=== PATIENT | male | born 1945 | race Caucasian/White ===

== ENCOUNTER → 2016-09-28 | Outpatient (CLI) | payer OTHER ==
[~2016-09-28] MED LIST: ALBUTEROL0.09 MG/A2 IH; BENTYL10 MG PO; DOXYCYCLINE100 M2 PO; MEDROL DOSEPAK4 MG PO; OMNICEF300 MG PO; PERCOCET 325 MG1 TA2 PO; PROAIR HFA8.5 GM INH; ROBITUSSIN AC 110 ML PO; ROBITUSSIN-AC480 ML PO; XARELTO15 M1 PO; ZOFRAN ODT4 MG SL
[2016-09-28 11:21] LABS: HEMATOCRIT 41.6 % (42.0-52.0); HEMOGLOBIN 13.6 g/dl (14.0-18.0); MEAN CELL VOLUME 91.2 fl (80.0-94.0); MEAN CORPUSCULAR HGB 29.8 pg (27.0-31.0); MEAN CORPUSCULAR HGB CONC 32.7 g/dl (33.0-37.0); MEAN PLATELET VOLUME 9.8 fl (9.6-12.3); RED BLOOD COUNT 4.56 10*6/uL (4.50-5.90); RED CELL DISTRI WIDTH 13.6 % (0-14.5); WHITE BLOOD COUNT 8.9 10*3/uL (4.8-10.8)
[2016-09-28 11:38] LABS: ALBUMIN 3.2 gm/dl (3.1-4.5); ALKALINE PHOSPHATASE 91 U/L (45-117); BILIRUBIN, TOTAL 0.4 mg/dl (0.2-1.0); BUN 12 mg/dl (7-24); CARBON DIOXIDE 31 mmol/L (21-32); CHLORIDE 109 mmol/L (98-107); CHOLESTEROL 188 mg/dL (<200); EST GLOM FILT AFRICAN AMERICAN > 60 ml/min; GLUCOSE 95 mg/dL (65-99); HDL CHOLESTEROL 47 mg/dl (40-60); LDL CHOLESTEROL 110 mg/dL (9-159); POTASSIUM 4.1 mmol/L (3.5-5.1); SGOT/AST 18 IU/L (3-35); SGPT/ALT 32 U/L (12-78); SODIUM 144 mmol/L (136-145); TOTAL PROTEIN 6.8 gm/dL (6.4-8.2); TRIGLYCERIDES 156 mg/dl (<150); VLDL CHOLESTEROL 31 mg/dL (6-40)
== END | disposition home or self-care (01) ==
LOC: LAB 10:42
PROVIDERS: Family Medicine
DX: Z12.5 Encounter for screening for malignant neoplasm of prostate (principal); L03.90 Cellulitis, unspecified; E55.9 Vitamin D deficiency, unspecified; E78.00 Pure hypercholesterolemia, unspecified; R53.83 Other fatigue

== ENCOUNTER 2016-11-27 03:44 | Emergency (ER) | payer OTHER ==
[~2016-11-27] VITALS: Ht 177.8 cm; Wt 95.3 kg
[2016-11-27] MEDS ORDERED: VITAMIN D5000 I3 PO (04:07)
[2016-11-27] MEDS ORDERED: FISH OIL500 M2 PO (04:08)
[2016-11-27 04:31] LABS: HEMATOCRIT 45.4 % (42.0-52.0); HEMOGLOBIN 15.2 g/dl (14.0-18.0); MEAN CELL VOLUME 88.5 fl (80.0-94.0); MEAN CORPUSCULAR HGB 29.6 pg (27.0-31.0); MEAN CORPUSCULAR HGB CONC 33.5 g/dl (33.0-37.0); MEAN PLATELET VOLUME 9.6 fl (9.6-12.3); PLATELET COUNT AUTOMATED 284 10*3/uL (130-400); RED BLOOD COUNT 5.13 10*6/uL (4.50-5.90); RED CELL DISTRI WIDTH 13.5 % (0-14.5); WHITE BLOOD COUNT 18.7 10*3/uL (4.8-10.8)
[2016-11-27 04:47] LABS: ALBUMIN 3.5 gm/dl (3.1-4.5); ALKALINE PHOSPHATASE 84 U/L (45-117); BILIRUBIN, TOTAL 0.6 mg/dl (0.2-1.0); BUN 14 mg/dl (7-24); C-REACTIVE PROTEIN 1.11 MG/DL (0-0.3); CARBON DIOXIDE 27 mmol/L (21-32); CHLORIDE 105 mmol/L (98-107); EST GLOM FILT AFRICAN AMERICAN > 60 ml/min; GLUCOSE 160 mg/dL (65-99); POTASSIUM 4.1 mmol/L (3.5-5.1); SGOT/AST 16 IU/L (3-35); SGPT/ALT 32 U/L (12-78); SODIUM 141 mmol/L (136-145); TOTAL PROTEIN 7.2 gm/dL (6.4-8.2)
[2016-11-27 04:50] LABS: TROPONIN I < 0.015 ng/ml (<0.045)
[2016-11-27 04:58] LABS: BASOPHIL # 0.2 10*3/uL (0-0.1); BASOPHILS 1 % (0-1); LYMPHOCYTE # 1.7 10*3/uL (1.3-4.4); METAMYELOCYTES 1 % (0-0); MONOCYTE # 1.3 10*3/uL (0.1-1.0); NEUTROPHIL # 15.3 10*3/uL (2.3-7.9); NEUTROPHILS 82 % (47-73); PLATELET SUFFICIENCY NORMAL (NORMAL); POLYCHROMASIA SLIGHT; TOTAL CELLS COUNTED 100 #CELLS
[2016-11-27 06:28] LABS: LA>2 REFLEX 2 HR DRAW NOW
[2016-11-27 08:41] VITALS: BP 132/68
[2016-11-27 08:51] LABS: BILIRUBIN NEGATIVE (NEGATIVE); BLOOD NEGATIVE (NEGATIVE); CLARITY SL CLOUDY (CLEAR); COLOR YELLOW (YELLOW); GLUCOSE NEGATIVE (NEGATIVE); KETONE NEGATIVE (NEGATIVE); LEUKO ESTERASE NEGATIVE (NEGATIVE); NITRITE NEGATIVE (NEGATIVE); PH 5.5 (5.0-9.0); PROTEIN NEGATIVE (NEGATIVE); SPECIFIC GRAVITY <= 1.005 (1.005-1.030); UROBILINOGEN 0.2 E.U./dl (0.2-1.0)
[2016-11-27 08:57] LABS: URINE REFLEX COMMENT NO (NO)
== END 2016-11-27 10:11 | disposition short-term general hospital (02) ==
LOC: ED 03:44
PROVIDERS: Emergency Medicine Emergency Medical Services
DX: K56.60 Unspecified intestinal obstruction (principal); F17.210 Nicotine dependence, cigarettes, uncomplicated; Z79.899 Other long term (current) drug therapy; Z86.718 Personal history of other venous thrombosis and embolism

== ENCOUNTER → 2017-07-12 | Outpatient (CLI) | payer OTHER ==
[~2017-07-12] MED LIST changes: +FISH OIL500 M2 PO; +VITAMIN D5000 I3 PO
[2017-07-12 10:46] LABS: HEMATOCRIT 43.6 % (42.0-52.0); HEMOGLOBIN 14.5 g/dl (14.0-18.0); MEAN CELL VOLUME 90.8 fl (80.0-94.0); MEAN CORPUSCULAR HGB 30.2 pg (27.0-31.0); MEAN CORPUSCULAR HGB CONC 33.3 g/dl (33.0-37.0); MEAN PLATELET VOLUME 9.7 fl (9.6-12.3); RED BLOOD COUNT 4.8 10*6/uL (4.50-5.90); RED CELL DISTRI WIDTH 13.3 % (0-14.5); WHITE BLOOD COUNT 10.3 10*3/uL (4.8-10.8)
[2017-07-12 11:21] LABS: ALBUMIN 3.3 gm/dl (3.1-4.5); BUN 13 mg/dl (7-24); CHLORIDE 108 mmol/L (98-107); POTASSIUM 4.1 mmol/L (3.5-5.1); SGOT/AST 19 IU/L (3-35); SODIUM 143 mmol/L (136-145); TOTAL PROTEIN 7.3 gm/dL (6.4-8.2)
[2017-07-12 11:22] LABS: ALKALINE PHOSPHATASE 95 U/L (45-117); CHOLESTEROL 192 mg/dL (<200); CREATININE 1.06 mg/dL (0.70-1.30); HDL CHOLESTEROL 40 mg/dl (40-60); LDL CHOLESTEROL 104 mg/dL (9-159); SGPT/ALT 32 U/L (12-78); TRIGLYCERIDES 242 mg/dl (<150); VLDL CHOLESTEROL 48 mg/dL (6-40)
== END | disposition home or self-care (01) ==
LOC: LAB 10:18
PROVIDERS: Family Medicine
DX: E78.00 Pure hypercholesterolemia, unspecified (principal); E55.9 Vitamin D deficiency, unspecified; R05 Cough

== ENCOUNTER 2017-11-26 21:44 | Inpatient (IN) | payer OTHER ==
[~2017-11-26] VITALS: Ht 177.8 cm; Wt 94.6 kg
--- NOTE | ~2017-11-26 | CON ---
[place], [place] REPORT OF CONSULTATION NAME: [facility]CG[facility]RE [id number] UNIT #: [id number] ROOM: 421 DOCTOR: TROY ELIZABETH MDVANDERPOOLNOÉ BIRTHDATE: [birth year] DOS: 11/28/2017 GASTROENDOSCOPIC CONSULTATION REPORT HISTORY OF PRESENT ILLNESS: This is a 72-year-old patient who presented with chief complaint of distention of the abdomen, nausea through Emergency Room and was assessed with a panel of blood glucose, found to have white blood cell 14, H and H of 15 and 45. Differential within normal limit. Comprehensive metabolic panel: BUN and creatinine within normal limit. Glucose 110. Electrolytes balance, liver function tests and lipase within normal limits. CT scan of the abdomen and pelvis was performed and 2 separate moderate grade small bowel partial mechanical obstruction is outlined, the first occurs at the level of the mid jejunum where there is focal circumferential wall thickening of the mid jejunum and fecal like contents within the dilated small bowel proximal to this transition zone, small bowel becomes dilated and fluid filled beyond the proximal obstruction with second moderate partial mechanical obstruction at the level of mid ileum. There is a gain circumferential of the small bowel wall thickening at transition. The distal ileum remains circumferentially mildly thickened and this may be related to chronic inflammatory problem. Patchy scarring and atelectasis of left greater than the right lung base with chronic calcific pleural plaques noticed lung nodules in both lung bases are unchanged from 2013, moderate size hiatal hernia, diverticulosis all has been outlined. Lactic acid 1.3. Chest x-ray otherwise advance of the NG tube was suggested that has been done. CBC differential noticed abdominal x-ray followups, finding consistent with a small-bowel obstruction on and finally on . Report of bowel gas pattern cannot be evaluated and NG present and this signifies that decompression has been done adequately. Clinically, patient has bowel sounds in all quadrants and has had small bowel movement this morning after the x-ray has been taken on him. The latest acute abdominal series, no concern about obstruction has been raised. PAST MEDICAL HISTORY: Recurrent bowel obstruction, which has been treated with NG tube and decompressions in the past. Otherwise, he is not on any medication and he does not have a chronic illness that is under treatment. PAST SURGICAL HISTORY: Nil. ALLERGIES: No known medication. SOCIAL HISTORY: Smoker of 10 cigarettes per day. Nonalcohol consumer. MEDICATIONS: At home are limited to multivitamins self-management. FAMILY HISTORY: Noncontributory. REVIEW OF SYSTEMS: HEENT: Denies double vision, blurred vision. RESPIRATORY: Denies acute chest pain or shortness of breath. CARDIOVASCULAR: No typical chest pain or hypertension. DIGESTIVE SYSTEM: Abdominal pain, nausea and recurrent small-bowel obstruction [place], [place] REPORT OF CONSULTATION NAME: VERNELL MCGUIRE UNIT #: [id number] ROOM: [facility] DOCTOR[facility] [birth year] history. The last episode being in last year is about December that was treated with NG tube decompression. PHYSICAL EXAMINATION: VITAL SIGNS: Stable. HEENT: Head normocephalic, nontraumatic. Mouth and buccal mucosa benign. NECK: Supple, no thyromegaly, no cervical lymphadenopathy. CHEST: Symmetric anatomy, decreased air entry bilaterally and otherwise no wheezes, no rhonchi. HEART: Normal sinus rhythm, no gallop, no murmur. ABDOMEN: Protruding. Bowel sounds present in all quadrants. No rebound tenderness. No hepato-organomegaly can be elicited. EXTREMITIES: No cyanosis, no pedal edema. NEUROLOGIC: Fully alert, oriented to time, place, person. Sensory, motor intact. Cranial nerves 2-12 intact. LABORATORY DATA: Reviewed. Records reviewed. Data reviewed. IMPRESSION AND PLAN: Partial small-bowel obstruction at 2 level ileum and jejunum based on CT scan findings that has resolved based on KUB of the abdomen today. The patient has had bowel movements this morning. His nausea sensation is gone. He is asking for the NG tube to be removed. I see no contraindication in this and therefore, we are going to remove the NG tube and we are going to proceed with prokinetic and metoclopramide 10 mg IV one dose and we are going to make the patient to ambulate to see if further bowel movements ensues and if he does, then we are going to start him on clear liquids and observe him couple of days. If he rebounds to his obstructive pattern then we will return the NG tube and in any case this patient has inflammatory response and at the terminal ileum makes me wonder if he has terminal ileitis Crohn's disease and obscure etiology for jejunal stricture repeatedly. I am considering the push through endoscopy of upper GI tract to beyond ligament of Treitz to make sure that there is no obstruction of concern. Workup in progress. I will be following along. PAWEL ELIZABTEH MD CM:CONSTR:REPORT OF CONSULTATION 1203 12/12/17 0721 interface
--- NOTE | ~2017-11-26 | PR ---
[place], [place] PROGRESS NOTE NAME: [facility] [id number] UNIT #: [id number] ROOM: 421 DOCTOR: ANNMARIE FALLON MD BIRTHDATE: [birth year] DOS: 11/28/2017 SUBJECTIVE: The patient is doing fine, is much better than yesterday, is less distended. He does not have much discomfort even though he continues to have significant drainage. OBJECTIVE: VITAL SIGNS: Blood pressure is 102/59, pulse of 83, respirations 18, temperature 99.1. LUNGS: Diminished breath sounds, clear. HEART: Regular. ABDOMEN: Obese, less distended, less tender. EXTREMITIES: Without any edema. Bowel sounds are present, but this could be from the ongoing suctioning. LABORATORY DATA: None available today. ASSESSMENT AND PLAN: 1. Small-bowel obstruction. Acute abdominal series will be ordered. He continues to have minimal amounts of drainage about 150 mL during the last shift. Continue IV fluids, IV Flagyl and IV Reglan. If the acute abdominal series shows improvement, the plan is to discontinue the NG tube and start him on a diet. 2. Enteritis. We will continue IV Flagyl, may require a small bowel study as an outpatient to rule out Crohn's. ANNMARIE FALLON MD CM:PNTRANS 07 27 ANNMARIE FALLON MD 11/28/17 1726 interface
--- NOTE | ~2017-11-26 | DS ---
[place], [place] DISCHARGE SUMMARY NAME: VERNELL MCGUIRE [facility] #: [id number] UNIT #: [id number] ROOM: 421 DOCTOR: ANNMARIE FALLON MD BIRTHDATE: [birth year] DOS: HOSPITAL COURSE: The patient is 72 years old, comes in with complaints of nausea, vomiting. Please refer to H and P for details. After being evaluated in the ER, was found to have small bowel obstruction, was admitted. CT of the abdomen was done, which showed a possibility of a mechanical reason for obstruction. Dr. Mcgowan was consulted. The patient had an NG tube placed. IV fluids ordered along with Reglan and Zofran. Dr. Gonzales was also consulted for possibility of a laparotomy. He has never had any surgery, so he does not have any evidence of adhesions on the CT scan. He does indeed have some evidence of enteritis, which was treated with IV Flagyl. The patient improved with conventional medical management. NG later was discontinued. He has been passing some flatus, he has had some small bowel movements. He is no longer nauseous and his abdomen is not distended anymore and so the plan is to discharge him to home today to follow up with his PCP as an outpatient. He is advised to have a small bowel study as an outpatient with his GI physician, Dr. Ruiz. DISCHARGE MEDICATIONS: Flagyl 500 t.i.d. for 5 days and Zofran 8 mg daily p.r.n. Of note is that the CT scan of the abdomen also showed nodules in the lungs with scarring and atelectasis. A dedicated CT of the chest needs to be done as an outpatient. The patient is advised to follow up with the PCP for further orders. ANNMARIE FALLON MD CM:DISCHARG 9 3 ANNMARIE FALLON MD 11/29/17721 interface
--- NOTE | ~2017-11-26 | WRIGHTHP ---
[place], [place] PATIENT HISTORY AND PHYSICAL EXAM NAME: VERNELL MCGUIRE [facility] #: [id number] UNIT #: [id number] ROOM: 421 DOCTOR: ANNMARIE FALLON MD BIRTHDATE: [birth year] DOS: 11/27/2017 HISTORY OF PRESENT ILLNESS: The patient is 72 years old, not known to me. The patient comes in with complaints of abdominal pain of a few hours' duration. He denies having any chest pains, palpitations. Does not have any fever or chills. Does have some minimal nausea. He has had multiple episodes of small-bowel obstruction in the past, so he decided to come into the Emergency Room, where he was evaluated and was found to have a mechanical obstruction, was admitted. An NG tube was placed in the ER, about 1000 mL of fluid was removed and the patient is still not very comfortable. He continues to complain of pain. PAST MEDICAL HISTORY: Significant for: 1. Multiple hospitalizations for small-bowel obstruction. 2. History of recent colonoscopy, was done at [place] by Dr. Ruiz. 3. History of irritable bowel. MEDICATIONS: He is on vitamin D, multivitamin, omega fatty acids. SOCIAL HISTORY: Smokes about half-pack of cigarettes a day, does not drink any alcohol. Lives at home with his . 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 PHYSICAL EXAMINATION: GENERAL: He had an NG tube and appears uncomfortable. VITAL SIGNS: Blood pressure is 139/92, pulse of 90, respirations 18, temperature 98.0. LUNGS: Diminished breath sounds. HEART: Regular. ABDOMEN: Obese, distended, absent bowel sounds. EXTREMITIES: Without any edema. LABORATORY DATA: Lactic acid is 1.3. White cell count is 14.2, hemoglobin and hematocrit normal. Comprehensive within normal limits. CT of the abdomen and pelvis shows mechanical obstruction, nodule in the right lower lobe of the lung as well as left upper lobe, scarring and atelectasis, sliding hiatal hernia, possible focal infectious enteritis is being considered. ASSESSMENT AND PLAN: 1. The patient presents with a small-bowel obstruction. NG tube was placed. IV fluids were ordered along with IV Flagyl. Consultation with Dr. Mcgowan is obtained. The patient may require surgical correction of the obstruction, so surgical consultation was obtained. 2. Multiple hospitalizations for similar problems with the possibility of enteritis. Flagyl was added. May require another colonoscopy for confirmation. Abdominal pain, pain is not controlled with the current dose of Dilaudid; dosage will be increased to every 4 hours. Discussed with the patient as well as . [place], [place] PATIENT HISTORY AND PHYSICAL EXAM NAME: VERNELL MCGUIRE UNIT #: [id number] ROOM: 421 DOCTOR: ANNMARIE FALLON MD BIRTHDATE: [birth year] ANNMARIE FALLON MD CM:HISPHYS:PATIENT HISTORY AND PHYSICAL EXAMINATION [id number] ANNMARIE FALLON MD 11/27/17 1006 interface
--- NOTE | ~2017-11-26 | PR ---
[place], [place] PROGRESS NOTE NAME: [facility] [id number] UNIT #: [id number] ROOM: 421 DOCTOR: ANNMARIE FALLON MD BIRTHDATE: [birth year] DOS: SUBJECTIVE: The patient's NG was removed and she is feeling better this morning. OBJECTIVE: VITAL SIGNS: Graphic trend shows pressure 124/71, pulse of 54, respirations 20, temperature 97.6. LUNGS: Diminished breath sounds. No wheezes, rales, rhonchi heard. HEART: Regular. ABDOMEN: Obese, soft, less distended. Bowel sounds present. EXTREMITIES: Without any edema. ASSESSMENT AND PLAN: 1. Small bowel obstruction, resolved with medical management. 2. Enteritis. The patient will need to have a small bowel study to rule out Crohn's of the small bowel. She will follow up with Dr. Ruiz as an outpatient. I appreciate all consultants' input. I do not have the labs yet from this morning. The patient will be ordered a breakfast and he should be able to go home if he tolerates that. ANNMARIE FALLON MD CM:PNTRANS [phone] ANNMARIE FALLON MD 11/29/17 0825 interface
[~2017-11-26 21:44] MED LIST changes: +VITAMIN D32000 UNIT PO; -VITAMIN D5000 I3 PO
[2017-11-26 21:46] VITALS: BP 156/101
[2017-11-26 22:29] LABS: BASO # 0.1 10*3/uL (0.0-0.1); BASO % 0.4 % (0.0-1.0); EOS # 0.2 10*3/uL (0.0-0.4); EOS % 1.4 % (1.0-4.0); HEMATOCRIT 45.8 % (42.0-52.0); LYMPH # 2.9 10*3/uL (1.3-4.4); LYMPH % 20.7 % (27.0-41.0); MEAN CELL VOLUME 89.6 fl (80.0-94.0); MEAN CORPUSCULAR HGB 29.4 pg (27.0-31.0); MEAN CORPUSCULAR HGB CONC 32.8 g/dl (33.0-37.0); MEAN PLATELET VOLUME 9.2 fl (9.6-12.3); MONO # 1.2 10*3/uL (0.1-1.0); MONO % 8.2 % (3.0-9.0); NEUT # 9.8 10*3/uL (2.3-7.9); NEUT % 68.8 % (47.0-73.0); PLATELET COUNT AUTOMATED 281 10*3/uL (130-400); RED BLOOD COUNT 5.11 10*6/uL (4.50-5.90); RED CELL DISTRI WIDTH 13.1 % (0-14.5); WHITE BLOOD COUNT 14.2 10*3/uL (4.8-10.8)
[2017-11-26 22:45] LABS: ALBUMIN 3.6 gm/dl (3.1-4.5); ALKALINE PHOSPHATASE 89 U/L (45-117); BUN 19 mg/dl (7-24); CHLORIDE 106 mmol/L (98-107); CREATININE 1.23 mg/dL (0.70-1.30); LIPASE 78 U/L (73-393); POTASSIUM 4.4 mmol/L (3.5-5.1); SGOT/AST 14 IU/L (3-35); SGPT/ALT 32 U/L (12-78); SODIUM 142 mmol/L (136-145); TOTAL PROTEIN 7.4 gm/dL (6.4-8.2)
[2017-11-27 00:56] VITALS: BP 139/92
[2017-11-27 01:35] VITALS: BP 142/82
[2017-11-27] MEDS ORDERED: MULTIVITAMINS1 EAC5 PO (02:19)
[2017-11-27] MEDS ORDERED: FLEXI JOINT TA1 EACH PO (02:22)
[2017-11-27 07:36] LABS: BASO % 0.2 % (0.0-1.0); EOS # 0.1 10*3/uL (0.0-0.4); EOS % 0.5 % (1.0-4.0); HEMATOCRIT 43.5 % (42.0-52.0); HEMOGLOBIN 14.1 g/dl (14.0-18.0); LYMPH # 1.8 10*3/uL (1.3-4.4); LYMPH % 12.6 % (27.0-41.0); MEAN CELL VOLUME 90.6 fl (80.0-94.0); MEAN CORPUSCULAR HGB 29.4 pg (27.0-31.0); MEAN CORPUSCULAR HGB CONC 32.4 g/dl (33.0-37.0); MEAN PLATELET VOLUME 9.3 fl (9.6-12.3); MONO % 7.2 % (3.0-9.0); NEUT # 11.5 10*3/uL (2.3-7.9); NEUT % 79.2 % (47.0-73.0); PLATELET COUNT AUTOMATED 278 10*3/uL (130-400); RED CELL DISTRI WIDTH 13.2 % (0-14.5); WHITE BLOOD COUNT 14.5 10*3/uL (4.8-10.8)
[2017-11-27 07:50] LABS: BUN 18 mg/dl (7-24); CHLORIDE 108 mmol/L (98-107); CREATININE 1.11 mg/dL (0.70-1.30); POTASSIUM 4.5 mmol/L (3.5-5.1); SODIUM 142 mmol/L (136-145)
[2017-11-27 08:00] VITALS: BP 154/88
[2017-11-27 12:00] VITALS: BP 126/75
[2017-11-27 16:00] VITALS: BP 137/67
[2017-11-27 20:00] VITALS: BP 117/64
[2017-11-28] VITALS: BP 102/59
[2017-11-28 08:00] VITALS: BP 111/63
[2017-11-28 12:00] VITALS: BP 126/65
[2017-11-28 16:00] VITALS: BP 124/78
[2017-11-28 20:00] VITALS: BP 133/66
[2017-11-29] VITALS: BP 124/71
[2017-11-29] MEDS ORDERED: ZOFRAN8 M1 PO (06:55)
[2017-11-29] MEDS ORDERED: FLAGYL500 MG PO (06:55)
[2017-11-29 07:24] LABS: BASO % 0.4 % (0.0-1.0); EOS # 0.3 10*3/uL (0.0-0.4); EOS % 3.2 % (1.0-4.0); HEMATOCRIT 37.8 % (42.0-52.0); LYMPH % 21.7 % (27.0-41.0); MEAN CELL VOLUME 91.3 fl (80.0-94.0); MEAN CORPUSCULAR HGB 28.7 pg (27.0-31.0); MEAN CORPUSCULAR HGB CONC 31.5 g/dl (33.0-37.0); MEAN PLATELET VOLUME 9.1 fl (9.6-12.3); MONO % 10.7 % (3.0-9.0); NEUT # 5.9 10*3/uL (2.3-7.9); NEUT % 63.7 % (47.0-73.0); PLATELET COUNT AUTOMATED 216 10*3/uL (130-400); RED BLOOD COUNT 4.14 10*6/uL (4.50-5.90); RED CELL DISTRI WIDTH 13.1 % (0-14.5); WHITE BLOOD COUNT 9.2 10*3/uL (4.8-10.8)
[2017-11-29 07:26] LABS: HEMOGLOBIN 11.9 g/dl (14.0-18.0)
[2017-11-29 07:42] LABS: BUN 14 mg/dl (7-24); CHLORIDE 112 mmol/L (98-107); CREATININE 0.85 mg/dL (0.70-1.30); POTASSIUM 3.9 mmol/L (3.5-5.1); SODIUM 145 mmol/L (136-145)
== END 2017-11-29 08:19 | disposition home or self-care (01) | DRG 392 ==
LOC: ED 21:44 → 4E 11-27 00:53
PROVIDERS: Internal Medicine; Internal Medicine Gastroenterology; Student in an Organized Health Care Education/Training Program
PROC: 0DH67UZ Insertion of Feeding Device into Stomach, Via Natural or Artificial Opening (ICD-10-PCS; principal; 2017-11-27)
DX: K52.9 Noninfective gastroenteritis and colitis, unspecified (principal); K56.600 Partial intestinal obstruction, unspecified as to cause; K57.30 Diverticulosis of large intestine without perforation or abscess without bleeding; Z82.49 Family history of ischemic heart disease and other diseases of the circulatory system; Z83.6 Family history of other diseases of the respiratory system; Z80.9 Family history of malignant neoplasm, unspecified; Z79.899 Other long term (current) drug therapy

== ENCOUNTER → 2018-01-09 | Outpatient (CLI) | payer OTHER ==
[~2018-01-09] MED LIST changes: +FLAGYL500 MG PO; +FLEXI JOINT TA1 EACH PO; +MULTIVITAMINS1 EAC5 PO; +ZOFRAN8 M1 PO
[2018-01-09 12:01] LABS: HEMATOCRIT 41.9 % (42.0-52.0); HEMOGLOBIN 13.6 g/dl (14.0-18.0); MEAN CELL VOLUME 90.5 fl (80.0-94.0); MEAN CORPUSCULAR HGB 29.4 pg (27.0-31.0); MEAN CORPUSCULAR HGB CONC 32.5 g/dl (33.0-37.0); MEAN PLATELET VOLUME 9.7 fl (9.6-12.3); RED BLOOD COUNT 4.63 10*6/uL (4.50-5.90); RED CELL DISTRI WIDTH 13.8 % (0-14.5); WHITE BLOOD COUNT 9.2 10*3/uL (4.8-10.8)
[2018-01-09 12:28] LABS: ALBUMIN 3.3 gm/dl (3.1-4.5); BUN 12 mg/dl (7-24); CHLORIDE 110 mmol/L (98-107); POTASSIUM 3.9 mmol/L (3.5-5.1); SODIUM 143 mmol/L (136-145)
[2018-01-09 12:33] LABS: ALKALINE PHOSPHATASE 80 U/L (45-117); CHOLESTEROL 187 mg/dL (<200); CREATININE 1.01 mg/dL (0.70-1.30); HDL CHOLESTEROL 38 mg/dl (40-60); LDL CHOLESTEROL 110 mg/dL (9-159); SGOT/AST 14 IU/L (3-35); SGPT/ALT 25 U/L (12-78); TOTAL PROTEIN 6.9 gm/dL (6.4-8.2); TRIGLYCERIDES 194 mg/dl (<150); VLDL CHOLESTEROL 39 mg/dL (6-40)
== END | disposition home or self-care (01) ==
LOC: LAB 11:17
PROVIDERS: Family Medicine
DX: Z12.5 Encounter for screening for malignant neoplasm of prostate (principal); E78.00 Pure hypercholesterolemia, unspecified; E55.9 Vitamin D deficiency, unspecified

== ENCOUNTER → 2018-02-26 | Outpatient (CLI) | payer OTHER | END | disposition home or self-care (01) | LOC: RAD 12:10 | DX: J44.9 Chronic obstructive pulmonary disease, unspecified (principal) ==

== ENCOUNTER 2018-07-08 08:08 | Inpatient (IN) | payer OTHER ==
[~2018-07-08] VITALS: Ht 177.8 cm; Wt 96.2 kg
[2018-07-08] VITALS (7 sets, daily range): BP systolic 100–146; BP diastolic 57–70
--- NOTE | ~2018-07-08 | EKG ---
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
--- NOTE | ~2018-07-08 | PR ---
[place], [place] PROGRESS NOTE NAME: VERNELL MCGUIRE UNIT #: [id number] ROOM: 503 DOCTOR: PIA GRANADOS MD BIRTHDATE: [birth year] DOS: 07/09/2018 SUBJECTIVE: The patient complains of some shortness of breath, chest congestion and he also underwent cardiac stress testing today. OBJECTIVE: GENERAL APPEARANCE: The patient is alert and oriented x 3, in no visible distress. VITAL SIGNS: Blood pressure 114/64, heart rate of 88 beats per minute, breathing normally, afebrile. HEENT AND NECK: Exam within normal limits. CARDIOVASCULAR SYSTEM: Heart rate is regular in rate and rhythm. S1 and S2 normally audible. LUNGS: Decreased breath sounds all over. ABDOMEN: Soft, nontender. No obvious organomegaly. Bowel sounds are present. EXTREMITIES: Without significant cyanosis or edema. IMPRESSION: 1. Acute exacerbation of chronic obstructive pulmonary disease with significant history of nicotine smoke dependence in the past with increased shortness of breath, now being treated with corticosteroids and bronchodilators for symptomatic relief. 2. Chest pains and borderline elevation of cardiac enzymes evaluated with a cardiac stress test today. Nuclear scan results to be reported by Cardiology are still not available. 3. Irritable bowel syndrome, asymptomatic. 4. Vitamin D deficiency, to be replaced with supplements. 5. Benign essential hypertension, was being treated with lisinopril, which was stopped. 6. Hypotension from viral syndrome. The patient is feeling sick, not eating well and also taking double the dose of his lisinopril has resolved and blood pressures have improved with hydration with normal saline. 7. Mild protein-calorie malnutrition. The patient is working with dietary. 8. Lactic acid level elevation to 3.7 from dehydration, has resolved with hydration with normal saline. [place], [place] PROGRESS NOTE NAME: VERNELL MCGUIRE UNIT #: [id number] ROOM: 503 DOCTOR: PIA GRANADOS MD BIRTHDATE: [birth year] PIA GRANADOS MD CM:PNTRANS 1708 1322 PIA GRANADOS MD 07/10/18 1322 interface
--- NOTE | ~2018-07-08 | EKG ---
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
--- NOTE | ~2018-07-08 | ST ---
[place], [place] EXERCISE STRESS TEST REPORT NAME: VERNELL MCGUIRE [facility] #: [id number] UNIT #: [id number] ROOM: 503 DOCTOR: ROBERTA BRUNER,PIA Yang BIRTHDATE: [birth year] DOS: TREADMILL TEST WITH CARDIOLITE REPORT INDICATIONS: The patient is presently admitted for hypotension and complains of some angina-like symptoms, presently asymptomatic. FINDINGS: Baseline EKG showed a normal sinus rhythm at the heart rate of 84 beats per minute, normal cardiac axis, some premature atrial contractions. No significant ST-T abnormality. Occasional quadrigeminy was observed. The patient reached a total maximum heart rate of 126 beats per minute, which was 86% of the PMHR, maximum blood pressure was 174 systolic over 60 diastolic. Baseline blood pressure was 122 systolic over 80 diastolic, heart rate ranged between 84-126 beats per minute. No angina-like symptoms, no acute ST-T abnormality and no significant cardiac dysrhythmias were observed on the rn cardiac. The patient was injected with nuclear Cardiolite during the peak phase of exercise and he exercised for 1 more minute after the injection. IMPRESSION: 1. Normal EKG part of the treadmill test with Cardiolite at 86% predicted maximum heart rate. 2. Dr. Torrez, the retrimmer to report on nuclear scan results later today. PIA GRANADOS MD CM:STRESS:EXERCISE STRESS TEST REPORT [id number] 0128 PIA GRANADOS MD
--- NOTE | ~2018-07-08 | EKG ---
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
--- NOTE | ~2018-07-08 | DS ---
[place], [place] DISCHARGE SUMMARY NAME: VERNELL MCGUIRE UNIT #: [id number] ROOM: 503 DOCTOR: ROBERTA BRUNERPIA Yang BIRTHDATE: [birth year] DOS: 07/10/2018 DISCHARGE DIAGNOSES: 1. Angina equivalent with normal cardiac stress test. 2. Acute exacerbation of chronic obstructive pulmonary disease. 3. Benign essential hypertension. Lisinopril was stopped. 4. Hypotension from viral syndrome. The patient is taking double dose of his lisinopril and not eating well. 5. Irritable bowel syndrome. 6. Vitamin D deficiency. HOSPITAL COURSE: The patient has previous history of nicotine smoke dependence and scarring at the base of the lungs and COPD with increased shortness of breath. Acute exacerbation of COPD, treated with corticosteroids, antibiotic and bronchodilators and is feeling better. The patient's neck and shoulder pains considered angina and cardiac enzymes were checked. He had borderline positive troponin I levels and he was taken for a cardiac stress test, which turned out to be normal. Acute hypotension because the patient was taking double dose of lisinopril. Also, he had a viral syndrome and was not eating well, having flu-like symptoms for 3 days. The patient's creatinine had jumped up to 1.6 and he was hypotensive. The patient was treated with hydration with normal saline and stopping his lisinopril and his blood pressure is normalized. The patient was taken off lisinopril and his pressure was staying normal. Mild protein calorie malnutrition with albumin level of 2.9. The patient worked with dietary. Benign essential hypertension. The patient is diet controlled now. His lisinopril was stopped because of hypotension. Lactic acid level elevation of 3.7 normalized with hydration with normal saline. Acute kidney failure, apparently vasomotor, has resolved with hydration. The patient's creatinine is 1.17 now as compared to 1.6 at admission. Vitamin D deficiency, to be treated with supplements. History of irritable bowel syndrome, presently asymptomatic. LABORATORY DATA: Blood cultures negative, cardiac stress test normal, normal serum electrolytes. DISCHARGE MANAGEMENT: 1. Medrol Dosepak. 2. Symbicort inhaler that he was taking at home. [place], [place] DISCHARGE SUMMARY NAME: VERNELL MCGUIRE UNIT #: [id number] ROOM: [facility] DOCTOR: PIA GRANADOS MD BIRTHDATE: [birth year] 3. Augmentin 875 mg twice a day for a week. 4. Lisinopril was stopped. PIA GRANADOS MD CM:ABIODUN [id number] PIA GRANADOS MD 07/11/18 0611 interface
--- NOTE | ~2018-07-08 | WRIGHTHP ---
[place], [place] PATIENT HISTORY AND PHYSICAL EXAM NAME: [id number] UNIT #: [id number] ROOM: 503 DOCTOR: ROBERTA BRUNERPIA J BIRTHDATE: [birth year] DOS: 07/08/2018 HISTORY OF PRESENT ILLNESS: The patient is a 72-year-old gentleman with a past medical history of: 1. Benign essential hypertension. 2. Previous history of irritable bowel syndrome. 3. History of vitamin D deficiency. 4. Chronic obstructive pulmonary disease. The patient smoked for a total of 60 years and had bilateral scarring at the lung bases on chest x-ray. The patient presented to the Emergency Department after 3 days of taking double the dose of lisinopril because he thought his blood pressures were high. The patient became weak, dizzy, lightheaded and was found to be hypotensive in the Emergency Department with a blood pressure of only 88 systolic. The patient was hydrated with IV fluids and given IV Rocephin because his white cell counts were high and he was feeling quite sick. The patient had leukocytosis with white cell count of 12,400. BUN and creatinine elevated to 14 and 1.6. IMPRESSION: 1. The patient presenting with upper back pains and slight elevation of troponin I levels for which we will check 3 more levels of troponin every 3 hours and schedule him for a cardiac stress test on Sunday. The patient to be kept on a quality assurance monitor body. 2. Hypotension from taking double dose of lisinopril as well as having viral syndrome, having flu-like symptoms for 3 days and dehydration with elevation of creatinine to 1.6. BUN 14, creatinine 1.6. 3. Mild protein-calorie malnutrition with an albumin level of 2.9. The patient to work with dietary. 4. Benign essential hypertension. The patient takes lisinopril, but presently is hypotensive and dehydrated with hypovolemia. I will continue hydration with normal saline. 5. Lactic acid level elevation to 3.7. I will continue to hydrate him. Lactic acid level has dropped to 1.8 with hydration in the ER. 6. Leukocytosis with white cell count of 12,400. I will repeat blood counts and serum electrolytes tomorrow. [place], [place] PATIENT HISTORY AND PHYSICAL EXAM NAME: VERNELL MCGUIRE [facility] UNIT #: [id number] ROOM: [facility] DOCTOR: PIA GRANADOS MD BIRTHDATE: [birth year] PIA GRANADOS MD CM:HISPHYS:PATIENT HISTORY AND PHYSICAL EXAMINATION 1619 1640 PIA GRANADOS MD 07/08/18 1639 interface
[2018-07-08 08:41] LABS: BASO # 0.1 10*3/uL (0.0-0.1); BASO % 0.6 % (0.0-1.0); EOS # 0.3 10*3/uL (0.0-0.4); EOS % 2.3 % (1.0-4.0); HEMATOCRIT 46.2 % (42.0-52.0); HEMOGLOBIN 15.1 g/dl (14.0-18.0); LYMPH # 2.1 10*3/uL (1.3-4.4); LYMPH % 16.6 % (27.0-41.0); MEAN CELL VOLUME 91.3 fl (80.0-94.0); MEAN CORPUSCULAR HGB 29.8 pg (27.0-31.0); MEAN CORPUSCULAR HGB CONC 32.7 g/dl (33.0-37.0); MEAN PLATELET VOLUME 9.7 fl (9.6-12.3); MONO # 1.3 10*3/uL (0.1-1.0); MONO % 10.4 % (3.0-9.0); NEUT # 8.6 10*3/uL (2.3-7.9); NEUT % 69.7 % (47.0-73.0); PLATELET COUNT AUTOMATED 256 10*3/uL (130-400); RED BLOOD COUNT 5.06 10*6/uL (4.50-5.90); RED CELL DISTRI WIDTH 13.8 % (0-14.5); WHITE BLOOD COUNT 12.4 10*3/uL (4.8-10.8)
[2018-07-08 08:49] LABS: ACT PARTIAL THROMBO TIME 24.1 SECONDS (20.8-31.5); INTERNATIONAL NORM RATIO 0.9 (2.0-3.5)
[2018-07-08 09:09] LABS: ALBUMIN 2.9 gm/dl (3.1-4.5); CREATININE 1.57 mg/dL (0.70-1.30); POTASSIUM 4.8 mmol/L (3.5-5.1)
[2018-07-08 09:10] LABS: TROPONIN I 0.036 ng/ml (<0.045)
[2018-07-08 10:04] LABS: BILIRUBIN NEGATIVE (NEGATIVE); BLOOD NEGATIVE (NEGATIVE); CLARITY SL CLOUDY (CLEAR); COLOR YELLOW (YELLOW); GLUCOSE NEGATIVE (NEGATIVE); KETONE NEGATIVE (NEGATIVE); LEUKO ESTERASE NEGATIVE (NEGATIVE); NITRITE NEGATIVE (NEGATIVE); SPECIFIC GRAVITY 1.015 (1.005-1.030); UROBILINOGEN 0.2 E.U./dl (0.2-1.0)
[2018-07-08 10:14] LABS: BACTERIA 2+
[2018-07-08 10:15] LABS: CALCIUM OXALATE CRYSTALS 2+
[2018-07-08] MEDS ORDERED: LISINOPRIL10 M1 PO (10:15)
[2018-07-09] VITALS: BP 126/71
[2018-07-09 06:54] LABS: BASO # 0.1 10*3/uL (0.0-0.1); BASO % 0.6 % (0.0-1.0); EOS # 0.5 10*3/uL (0.0-0.4); EOS % 5.2 % (1.0-4.0); HEMATOCRIT 40.4 % (42.0-52.0); HEMOGLOBIN 13.2 g/dl (14.0-18.0); LYMPH # 2.1 10*3/uL (1.3-4.4); LYMPH % 24.1 % (27.0-41.0); MEAN CELL VOLUME 90.2 fl (80.0-94.0); MEAN CORPUSCULAR HGB 29.5 pg (27.0-31.0); MEAN CORPUSCULAR HGB CONC 32.7 g/dl (33.0-37.0); MEAN PLATELET VOLUME 9.8 fl (9.6-12.3); MONO # 1.1 10*3/uL (0.1-1.0); MONO % 12.6 % (3.0-9.0); NEUT % 57.2 % (47.0-73.0); PLATELET COUNT AUTOMATED 208 10*3/uL (130-400); RED BLOOD COUNT 4.48 10*6/uL (4.50-5.90); RED CELL DISTRI WIDTH 13.7 % (0-14.5); WHITE BLOOD COUNT 8.7 10*3/uL (4.8-10.8)
[2018-07-09 07:02] LABS: BUN 12 mg/dl (7-24); CHLORIDE 110 mmol/L (98-107); CREATININE 1.07 mg/dL (0.70-1.30); SODIUM 142 mmol/L (136-145)
[2018-07-09 08:00] VITALS: BP 136/72
[2018-07-09 12:00] VITALS: BP 114/64
[2018-07-09 16:00] VITALS: BP 121/73
[2018-07-09 20:00] VITALS: BP 102/58
[2018-07-10] VITALS: BP 115/66
[2018-07-10 06:36] LABS: BASO % 0.2 % (0.0-1.0); HEMOGLOBIN 13.3 g/dl (14.0-18.0); LYMPH # 1.9 10*3/uL (1.3-4.4); LYMPH % 16.9 % (27.0-41.0); MEAN CELL VOLUME 92.1 fl (80.0-94.0); MEAN CORPUSCULAR HGB 28.5 pg (27.0-31.0); MEAN CORPUSCULAR HGB CONC 30.9 g/dl (33.0-37.0); MEAN PLATELET VOLUME 10.3 fl (9.6-12.3); MONO # 0.6 10*3/uL (0.1-1.0); MONO % 5.5 % (3.0-9.0); NEUT # 8.5 10*3/uL (2.3-7.9); PLATELET COUNT AUTOMATED 229 10*3/uL (130-400); RED BLOOD COUNT 4.67 10*6/uL (4.50-5.90); RED CELL DISTRI WIDTH 13.7 % (0-14.5); WHITE BLOOD COUNT 11.1 10*3/uL (4.8-10.8)
[2018-07-10 06:55] LABS: BUN 15 mg/dl (7-24); CHLORIDE 108 mmol/L (98-107); CREATININE 1.17 mg/dL (0.70-1.30); POTASSIUM 4.6 mmol/L (3.5-5.1); SODIUM 142 mmol/L (136-145)
[2018-07-10 08:00] VITALS: BP 124/68
[2018-07-10] MEDS ORDERED: MEDROL DOSEPAK4 MG PO (10:30)
[2018-07-10] MEDS ORDERED: AUGMENTIN 875-875 MG PO (10:30)
== END 2018-07-10 11:25 | disposition home or self-care (01) | DRG 865 ==
LOC: ED 08:08 → EDHOLD 09:51 → 5E 09:51
PROVIDERS: Emergency Medicine; ADMIT Internal Medicine
PROC: 4A02XM4 Measurement of Cardiac Total Activity, External Approach (ICD-10-PCS; principal; 2018-07-09)
PROC: 3E073KZ Introduction of Other Diagnostic Substance into Coronary Artery, Percutaneous Approach (ICD-10-PCS; principal; 2018-07-09)
DX: B34.9 Viral infection, unspecified (principal); N17.0 Acute kidney failure with tubular necrosis; R65.10 Systemic inflammatory response syndrome (SIRS) of non-infectious origin without acute organ dysfunction; E44.1 Mild protein-calorie malnutrition; E87.2 Acidosis; J44.1 Chronic obstructive pulmonary disease with (acute) exacerbation; I95.2 Hypotension due to drugs; I20.9 Angina pectoris, unspecified; T46.4X5A Adverse effect of angiotensin-converting-enzyme inhibitors, initial encounter; E86.0 Dehydration; K58.9 Irritable bowel syndrome, unspecified; E55.9 Vitamin D deficiency, unspecified; I10 Essential (primary) hypertension; Z87.891 Personal history of nicotine dependence; Z68.30 Body mass index [BMI] 30.0-30.9, adult; Y92.89 Other specified places as the place of occurrence of the external cause; Z79.899 Other long term (current) drug therapy; Z82.49 Family history of ischemic heart disease and other diseases of the circulatory system; Z80.8 Family history of malignant neoplasm of other organs or systems; Z82.5 Family history of asthma and other chronic lower respiratory diseases

== ENCOUNTER → 2018-10-08 | Outpatient (CLI) | payer OTHER ==
[~2018-10-08] MED LIST changes: +AUGMENTIN 875-875 MG PO; +LISINOPRIL10 M1 PO
[2018-10-08 13:11] LABS: HEMOGLOBIN 14.2 g/dl (14.0-18.0); MEAN CELL VOLUME 90.9 fl (80.0-94.0); MEAN CORPUSCULAR HGB 29.3 pg (27.0-31.0); MEAN CORPUSCULAR HGB CONC 32.3 g/dl (33.0-37.0); MEAN PLATELET VOLUME 9.8 fl (9.6-12.3); RED BLOOD COUNT 4.84 10*6/uL (4.50-5.90); RED CELL DISTRI WIDTH 13.6 % (0-14.5); WHITE BLOOD COUNT 11.8 10*3/uL (4.8-10.8)
[2018-10-08 13:45] LABS: ALBUMIN 3.3 gm/dl (3.1-4.5); ALKALINE PHOSPHATASE 99 U/L (45-117); BUN 16 mg/dl (7-24); CHLORIDE 109 mmol/L (98-107); CHOLESTEROL 189 mg/dL (<200); CREATININE 1.06 mg/dL (0.70-1.30); HDL CHOLESTEROL 38 mg/dl (40-60); LDL CHOLESTEROL 102 mg/dL (9-159); SGOT/AST 15 IU/L (3-35); SGPT/ALT 24 U/L (12-78); SODIUM 143 mmol/L (136-145); TOTAL PROTEIN 6.8 gm/dL (6.4-8.2); TRIGLYCERIDES 245 mg/dl (<150); VLDL CHOLESTEROL 49 mg/dL (6-40)
== END | disposition home or self-care (01) ==
LOC: LAB 12:10
PROVIDERS: Family Medicine
DX: I10 Essential (primary) hypertension (principal); E78.00 Pure hypercholesterolemia, unspecified; E55.9 Vitamin D deficiency, unspecified; M19.90 Unspecified osteoarthritis, unspecified site

== ENCOUNTER → 2019-05-09 | Outpatient (CLI) | payer OTHER ==
[2019-05-09 11:21] LABS: HEMATOCRIT 45.8 % (42.0-52.0); HEMOGLOBIN 14.7 g/dl (14.0-18.0); MEAN CELL VOLUME 90.7 fl (80.0-94.0); MEAN CORPUSCULAR HGB 29.1 pg (27.0-31.0); MEAN CORPUSCULAR HGB CONC 32.1 g/dl (33.0-37.0); MEAN PLATELET VOLUME 9.6 fl (9.6-12.3); RED BLOOD COUNT 5.05 10*6/uL (4.50-5.90); RED CELL DISTRI WIDTH 13.2 % (0-14.5); WHITE BLOOD COUNT 10.1 10*3/uL (4.8-10.8)
[2019-05-09 11:45] LABS: ALBUMIN 3.3 gm/dl (3.1-4.5); ALKALINE PHOSPHATASE 97 U/L (45-117); BUN 15 mg/dl (7-24); CHLORIDE 111 mmol/L (98-107); CHOLESTEROL 184 mg/dL (<200); CREATININE 1.23 mg/dL (0.70-1.30); HDL CHOLESTEROL 44 mg/dl (40-60); LDL CHOLESTEROL 116 mg/dL (9-159); POTASSIUM 4.4 mmol/L (3.5-5.1); SGOT/AST 13 IU/L (3-35); SGPT/ALT 23 U/L (12-78); SODIUM 143 mmol/L (136-145); TOTAL PROTEIN 6.9 gm/dL (6.4-8.2); TRIGLYCERIDES 121 mg/dl (<150); VLDL CHOLESTEROL 24 mg/dL (6-40)
== END | disposition home or self-care (01) ==
LOC: LAB 10:47
PROVIDERS: Family Medicine
DX: E78.00 Pure hypercholesterolemia, unspecified (principal); E55.9 Vitamin D deficiency, unspecified

== ENCOUNTER 2019-05-31 22:34 | Emergency (ER) | payer OTHER ==
[~2019-05-31] VITALS: Ht 177.8 cm; Wt 95.3 kg
[2019-05-31 22:40] VITALS: BP 133/78
== END 2019-05-31 23:32 | disposition home or self-care (01) ==
LOC: ED 22:34
DX: K56.0 Paralytic ileus (principal); R11.2 Nausea with vomiting, unspecified; J44.9 Chronic obstructive pulmonary disease, unspecified; Z79.2 Long term (current) use of antibiotics

== ENCOUNTER → 2020-06-04 | Outpatient (CLI) | payer OTHER ==
[2020-06-04 09:24] LABS: HEMATOCRIT 43.6 % (42.0-52.0); MEAN CELL VOLUME 88.6 fl (80.0-94.0); MEAN CORPUSCULAR HGB 28.7 pg (27.0-31.0); MEAN CORPUSCULAR HGB CONC 32.3 g/dl (33.0-37.0); MEAN PLATELET VOLUME 9.9 fl (9.6-12.3); RED BLOOD COUNT 4.92 10*6/uL (4.50-5.90); RED CELL DISTRI WIDTH 13.6 % (0-14.5); WHITE BLOOD COUNT 9.5 10*3/uL (4.8-10.8)
[2020-06-04 09:52] LABS: ALKALINE PHOSPHATASE 94 U/L (45-117); BUN 17 mg/dl (7-24); CHLORIDE 110 mmol/L (98-107); CHOLESTEROL 197 mg/dL (<200); CREATININE 1.07 mg/dL (0.70-1.30); HDL CHOLESTEROL 41 mg/dl (40-60); LDL CHOLESTEROL 116 mg/dL (9-159); POTASSIUM 3.9 mmol/L (3.5-5.1); SGOT/AST 9 IU/L (3-35); SGPT/ALT 23 U/L (12-78); SODIUM 142 mmol/L (136-145); TOTAL PROTEIN 6.3 gm/dL (6.4-8.2); TRIGLYCERIDES 202 mg/dl (<150); VLDL CHOLESTEROL 40 mg/dL (6-40)
== END | disposition home or self-care (01) ==
LOC: LAB 07:48
PROVIDERS: ATTEND Family Medicine
DX: Z12.5 Encounter for screening for malignant neoplasm of prostate (principal); I10 Essential (primary) hypertension; R53.83 Other fatigue

== ENCOUNTER → 2021-01-05 | Outpatient (CLI) | payer OTHER ==
[2021-01-05 12:05] LABS: HEMATOCRIT 41.8 % (42.0-52.0); MEAN CELL VOLUME 91.5 fl (80.0-94.0); MEAN CORPUSCULAR HGB 29.3 pg (27.0-31.0); MEAN CORPUSCULAR HGB CONC 32.1 g/dl (33.0-37.0); MEAN PLATELET VOLUME 9.4 fl (9.6-12.3); RED BLOOD COUNT 4.57 10*6/uL (4.50-5.90); RED CELL DISTRI WIDTH 13.6 % (0-14.5); WHITE BLOOD COUNT 9.9 10*3/uL (4.8-10.8)
[2021-01-05 12:34] LABS: ALBUMIN 3.1 gm/dl (3.1-4.5); ALKALINE PHOSPHATASE 70 U/L (45-117); BUN 17 mg/dl (7-24); CHLORIDE 109 mmol/L (98-107); CHOLESTEROL 169 mg/dL (<200); CREATININE 1.05 mg/dL (0.70-1.30); LDL CHOLESTEROL 89 mg/dL (9-159); POTASSIUM 4.2 mmol/L (3.5-5.1); SGOT/AST 13 IU/L (3-35); SGPT/ALT 24 U/L (12-78); SODIUM 141 mmol/L (136-145); TOTAL PROTEIN 6.6 gm/dL (6.4-8.2); TRIGLYCERIDES 210 mg/dl (<150)
== END | disposition home or self-care (01) ==
LOC: LAB 11:36
PROVIDERS: ATTEND Family Medicine
DX: J43.9 Emphysema, unspecified (principal); J61 Pneumoconiosis due to asbestos and other mineral fibers; I10 Essential (primary) hypertension; E78.00 Pure hypercholesterolemia, unspecified; R42 Dizziness and giddiness; R60.0 Localized edema

== ENCOUNTER → 2021-02-03 | Outpatient (CLI) | payer OTHER | END | disposition home or self-care (01) | LOC: RAD 09:46 | PROVIDERS: ATTEND Family Medicine | DX: R05 Cough (principal); J02.9 Acute pharyngitis, unspecified ==

== ENCOUNTER → 2021-06-28 | Outpatient (CLI) | payer OTHER ==
[2021-06-28 13:11] LABS: CREATININE 1.14 mg/dL (0.70-1.30)
== END | disposition home or self-care (01) ==
LOC: CT 06-24 14:00 → LAB 12:35 → CT 13:00
PROVIDERS: Radiology Diagnostic Radiology; ATTEND Family Medicine
DX: C34.31 Malignant neoplasm of lower lobe, right bronchus or lung (principal); J92.0 Pleural plaque with presence of asbestos; R91.1 Solitary pulmonary nodule; K76.0 Fatty (change of) liver, not elsewhere classified; K80.50 Calculus of bile duct without cholangitis or cholecystitis without obstruction; N28.1 Cyst of kidney, acquired

== ENCOUNTER → 2022-02-01 | Outpatient (CLI) | payer OTHER ==
[2022-02-01 10:55] LABS: HEMATOCRIT 41.4 % (42.0-52.0); MEAN CELL VOLUME 90.6 fl (80.0-94.0); MEAN CORPUSCULAR HGB 29.8 pg (27.0-31.0); MEAN CORPUSCULAR HGB CONC 32.9 g/dl (33.0-37.0); MEAN PLATELET VOLUME 9.3 fl (9.6-12.3); RED BLOOD COUNT 4.57 10*6/uL (4.50-5.90); RED CELL DISTRI WIDTH 13.5 % (0-14.5); WHITE BLOOD COUNT 9.2 10*3/uL (4.8-10.8)
[2022-02-01 11:11] LABS: ALKALINE PHOSPHATASE 70 U/L (45-117); BUN 17 mg/dl (7-24); CHLORIDE 112 mmol/L (98-107); CHOLESTEROL 170 mg/dL (<200); CREATININE 1.31 mg/dL (0.70-1.30); LDL CHOLESTEROL 91 mg/dL (9-159); POTASSIUM 4.1 mmol/L (3.5-5.1); SGOT/AST 14 IU/L (3-35); SGPT/ALT 27 U/L (12-78); SODIUM 142 mmol/L (136-145); TOTAL PROTEIN 6.7 gm/dL (6.4-8.2); TRIGLYCERIDES 217 mg/dl (<150)
== END | disposition home or self-care (01) ==
LOC: LAB 10:35
PROVIDERS: ATTEND Family Medicine
DX: I10 Essential (primary) hypertension (principal); E78.00 Pure hypercholesterolemia, unspecified

== ENCOUNTER → 2022-02-27 | Outpatient (CLI) | payer OTHER ==
[2022-02-27 12:40] LABS: POTASSIUM 4.2 mmol/L (3.5-5.1)
[2022-02-27 12:44] LABS: CREATININE 1.43 mg/dL (0.70-1.30)
== END | disposition home or self-care (01) ==
LOC: LAB 11:38
PROVIDERS: ATTEND Family Medicine
DX: N28.9 Disorder of kidney and ureter, unspecified (principal)

== ENCOUNTER → 2022-03-13 | Outpatient (CLI) | payer OTHER | END | disposition home or self-care (01) | LOC: LAB 11:22 | PROVIDERS: ATTEND Family Medicine | DX: N18.30 Chronic kidney disease, stage 3 unspecified (principal) ==

== ENCOUNTER → 2022-05-03 | Outpatient (CLI) | payer OTHER ==
[2022-05-03 12:41] LABS: HEMATOCRIT 39.2 % (42.0-52.0); MEAN CELL VOLUME 89.3 fl (80.0-94.0); MEAN CORPUSCULAR HGB 29.4 pg (27.0-31.0); MEAN CORPUSCULAR HGB CONC 32.9 g/dl (33.0-37.0); MEAN PLATELET VOLUME 9.1 fl (9.6-12.3); RED BLOOD COUNT 4.39 10*6/uL (4.50-5.90); WHITE BLOOD COUNT 12.2 10*3/uL (4.8-10.8)
[2022-05-03 13:33] LABS: ALKALINE PHOSPHATASE 71 U/L (46-116); BUN 16 mg/dl (9-23); CHLORIDE 109 mmol/L (98-107); CREATININE 1.27 mg/dL (0.70-1.30); POTASSIUM 4.1 mmol/L (3.4-5.1); SGPT/ALT 18 U/L (10-49); TOTAL PROTEIN 6.3 gm/dL (6.0-8.0)
== END | disposition home or self-care (01) ==
LOC: LAB 12:11
PROVIDERS: ATTEND Family Medicine
DX: I12.9 Hypertensive chronic kidney disease with stage 1 through stage 4 chronic kidney disease, or unspecified chronic kidney disease (principal); N18.30 Chronic kidney disease, stage 3 unspecified

== ENCOUNTER → 2022-05-22 | Outpatient (CLI) | payer MEDICARE ==
[2022-05-22 11:50] LABS: HEMATOCRIT 44.8 % (42.0-52.0); MEAN CELL VOLUME 91.4 fl (80.0-94.0); MEAN CORPUSCULAR HGB 29.4 pg (27.0-31.0); MEAN CORPUSCULAR HGB CONC 32.1 g/dl (33.0-37.0); MEAN PLATELET VOLUME 9.1 fl (9.6-12.3); RED BLOOD COUNT 4.9 10*6/uL (4.50-5.90); RED CELL DISTRI WIDTH 13.8 % (0-14.5); WHITE BLOOD COUNT 10.8 10*3/uL (4.8-10.8)
== END | disposition home or self-care (01) ==
LOC: LAB 11:26
PROVIDERS: ATTEND Family Medicine
DX: D72.829 Elevated white blood cell count, unspecified (principal)

== ENCOUNTER → 2022-09-22 | Outpatient (CLI) | payer MEDICARE ==
[2022-09-22 11:24] LABS: HEMATOCRIT 42.9 % (42.0-52.0); MEAN CELL VOLUME 91.5 fl (80.0-94.0); MEAN CORPUSCULAR HGB 29.6 pg (27.0-31.0); MEAN CORPUSCULAR HGB CONC 32.4 g/dl (33.0-37.0); RED BLOOD COUNT 4.69 10*6/uL (4.50-5.90); RED CELL DISTRI WIDTH 13.7 % (0-14.5); WHITE BLOOD COUNT 9.3 10*3/uL (4.8-10.8)
[2022-09-22 12:03] LABS: ALKALINE PHOSPHATASE 76 U/L (46-116); BUN 13 mg/dl (9-23); CHLORIDE 109 mmol/L (98-107); CHOLESTEROL 173 mg/dL (<200); LDL CHOLESTEROL 84 mg/dL (9-159); POTASSIUM 4.6 mmol/L (3.4-5.1); SGPT/ALT 23 U/L (10-49); TOTAL PROTEIN 6.7 gm/dL (6.0-8.0); TRIGLYCERIDES 248 mg/dl (<150)
== END | disposition home or self-care (01) ==
LOC: LAB 11:03
PROVIDERS: ATTEND Family Medicine
DX: I10 Essential (primary) hypertension (principal); E78.00 Pure hypercholesterolemia, unspecified; J44.9 Chronic obstructive pulmonary disease, unspecified

== ENCOUNTER → 2023-05-18 | Outpatient (CLI) | payer MEDICARE ==
[2023-05-18 09:46] LABS: HEMATOCRIT 44.2 % (42.0-52.0); MEAN CELL VOLUME 93.6 fl (80.0-94.0); MEAN CORPUSCULAR HGB 30.1 pg (27.0-31.0); MEAN CORPUSCULAR HGB CONC 32.1 g/dl (33.0-37.0); MEAN PLATELET VOLUME 9.2 fl (9.6-12.3); RED BLOOD COUNT 4.72 10*6/uL (4.50-5.90); RED CELL DISTRI WIDTH 13.6 % (0-14.5); WHITE BLOOD COUNT 10.1 10*3/uL (4.8-10.8)
[2023-05-18 10:23] LABS: ALKALINE PHOSPHATASE 80 U/L (46-116); BUN 17 mg/dl (9-23); CHLORIDE 110 mmol/L (98-107); CHOLESTEROL 182 mg/dL (<200); LDL CHOLESTEROL 97 mg/dL (9-159); POTASSIUM 4.4 mmol/L (3.4-5.1); SGPT/ALT 28 U/L (5-49); TOTAL PROTEIN 6.8 gm/dL (6.0-8.0); TRIGLYCERIDES 234 mg/dl (<150)
[2023-05-18 10:45] LABS: VITAMIN D, 25-HYDROXY 54.8 ng/mL (30-100)
== END | disposition home or self-care (01) ==
LOC: LAB 09:27
PROVIDERS: ATTEND Family Medicine
DX: I10 Essential (primary) hypertension (principal); E78.00 Pure hypercholesterolemia, unspecified; E55.9 Vitamin D deficiency, unspecified; R53.83 Other fatigue; J44.9 Chronic obstructive pulmonary disease, unspecified

== ENCOUNTER → 2023-11-27 | Outpatient (CLI) | payer MEDICARE ==
[2023-11-27 11:37] LABS: HEMATOCRIT 43.6 % (42.0-52.0); MEAN CELL VOLUME 93.4 fl (80.0-94.0); MEAN CORPUSCULAR HGB CONC 32.1 g/dl (33.0-37.0); MEAN PLATELET VOLUME 9.5 fl (9.6-12.3); RED BLOOD COUNT 4.67 10*6/uL (4.50-5.90)
[2023-11-27 12:01] LABS: ALKALINE PHOSPHATASE 83 U/L (46-116); BUN 15 mg/dl (9-23); CHLORIDE 111 mmol/L (98-107); CHOLESTEROL 169 mg/dL (<200); CPK 66 U/L (34-171); LDL CHOLESTEROL 87 mg/dL (9-159); SGPT/ALT 21 U/L (5-49); TOTAL PROTEIN 6.3 gm/dL (6.0-8.0); TRIGLYCERIDES 227 mg/dl (<150)
== END | disposition home or self-care (01) ==
LOC: LAB 11:16
PROVIDERS: ATTEND Family Medicine
DX: E78.00 Pure hypercholesterolemia, unspecified (principal); N18.30 Chronic kidney disease, stage 3 unspecified; E74.9 Disorder of carbohydrate metabolism, unspecified

== ENCOUNTER → 2023-12-17 | Outpatient (CLI) | payer MEDICARE ==
[2023-12-17 12:32] LABS: HEMATOCRIT 43.7 % (42.0-52.0); MEAN CORPUSCULAR HGB CONC 32.3 g/dl (33.0-37.0); MEAN PLATELET VOLUME 9.4 fl (9.6-12.3); RED BLOOD COUNT 4.7 10*6/uL (4.50-5.90); RED CELL DISTRI WIDTH 13.9 % (0-14.5); WHITE BLOOD COUNT 9.5 10*3/uL (4.8-10.8)
[2023-12-17 12:55] LABS: ALKALINE PHOSPHATASE 81 U/L (46-116); BUN 15 mg/dl (9-23); CHLORIDE 108 mmol/L (98-107); POTASSIUM 4.3 mmol/L (3.4-5.1); SGPT/ALT 24 U/L (5-49); TOTAL PROTEIN 6.9 gm/dL (6.0-8.0)
== END | disposition home or self-care (01) ==
LOC: LAB 12:09
PROVIDERS: ATTEND Family Medicine
DX: I10 Essential (primary) hypertension (principal); J44.9 Chronic obstructive pulmonary disease, unspecified; E74.9 Disorder of carbohydrate metabolism, unspecified; M25.50 Pain in unspecified joint; D72.819 Decreased white blood cell count, unspecified

== ENCOUNTER → 2024-01-11 | Outpatient (CLI) | payer MEDICARE ==
[2024-01-11 11:26] LABS: HEMATOCRIT 42.7 % (42.0-52.0); MEAN CELL VOLUME 93.2 fl (80.0-94.0); MEAN CORPUSCULAR HGB 29.7 pg (27.0-31.0); MEAN CORPUSCULAR HGB CONC 31.9 g/dl (33.0-37.0); MEAN PLATELET VOLUME 9.5 fl (9.6-12.3); RED BLOOD COUNT 4.58 10*6/uL (4.50-5.90); RED CELL DISTRI WIDTH 13.6 % (0-14.5); WHITE BLOOD COUNT 10.9 10*3/uL (4.8-10.8)
[2024-01-11 11:48] LABS: ALKALINE PHOSPHATASE 77 U/L (46-116); BUN 18 mg/dl (9-23); CHLORIDE 109 mmol/L (98-107); POTASSIUM 4.3 mmol/L (3.4-5.1); SGPT/ALT 23 U/L (5-49); TOTAL PROTEIN 6.5 gm/dL (6.0-8.0)
== END | disposition home or self-care (01) ==
LOC: LAB 11:08
PROVIDERS: ATTEND Family Medicine
DX: I10 Essential (primary) hypertension (principal); A15.9 Respiratory tuberculosis unspecified

== ENCOUNTER → 2024-01-17 | Outpatient (CLI) | payer MEDICARE | END | disposition home or self-care (01) | LOC: LAB 13:45 | PROVIDERS: ATTEND Family Medicine | DX: E83.52 Hypercalcemia (principal) ==

== ENCOUNTER → 2024-02-15 | Outpatient (CLI) | payer MEDICARE | END | disposition home or self-care (01) | LOC: RAD 01:37 | PROVIDERS: ATTEND Family Medicine | DX: Z13.820 Encounter for screening for osteoporosis (principal); M81.0 Age-related osteoporosis without current pathological fracture ==

== ENCOUNTER 2024-04-06 21:49 | Emergency (ER) | payer MEDICARE ==
[~2024-04-06] VITALS: Ht 177.8 cm; Wt 95.3 kg
[~2024-04-06 21:49] MED LIST changes: +AMOX-CLAV 875-1 EACH PO; +BUDESONIDE-FO10.2 G1 INH; +OYSTER SHELL 51 EAC5 PO
[2024-04-06 22:37] VITALS: BP 156/72
[2024-04-06] MEDS ORDERED: Ondansetron Hydrochloride 4 MG TAB SL ONE (23:40)
[2024-04-06] MEDS ORDERED: Acetaminophen/Hydrocodone 5 MG/325 MG TABLET PO ONE (23:40)
[2024-04-07] MEDS ORDERED: HYDROCODONE-AC1 EAC1 PO (00:52)
== END 2024-04-07 01:16 | disposition home or self-care (01) ==
LOC: ED 21:49
DX: S82.832A Other fracture of upper and lower end of left fibula, initial encounter for closed fracture (principal); J44.9 Chronic obstructive pulmonary disease, unspecified; Z98.890 Other specified postprocedural states; X50.1XXA Overexertion from prolonged static or awkward postures, initial encounter; Y93.89 Activity, other specified; Y92.009 Unspecified place in unspecified non-institutional (private) residence as the place of occurrence of the external cause; Y99.8 Other external cause status

== ENCOUNTER → 2024-04-07 | Outpatient (CLI) | payer MEDICARE ==
[~2024-04-07] MED LIST changes: +HYDROCODONE-AC1 EAC1 PO
== END | disposition home or self-care (01) ==
LOC: ORTHO 13:21
PROVIDERS: ATTEND Orthopaedic Surgery
DX: S82.841D Displaced bimalleolar fracture of right lower leg, subsequent encounter for closed fracture with routine healing (principal); M25.462 Effusion, left knee; X58.XXXA Exposure to other specified factors, initial encounter

== ENCOUNTER → 2024-05-29 | Outpatient (CLI) | payer MEDICARE ==
[2024-05-29 12:56] LABS: HEMATOCRIT 42.1 % (42.0-52.0); MEAN CELL VOLUME 90.9 fl (80.0-94.0); MEAN CORPUSCULAR HGB 28.3 pg (27.0-31.0); MEAN CORPUSCULAR HGB CONC 31.1 g/dl (33.0-37.0); RED BLOOD COUNT 4.63 10*6/uL (4.50-5.90); RED CELL DISTRI WIDTH 14.1 % (0-14.5); WHITE BLOOD COUNT 9.8 10*3/uL (4.8-10.8)
[2024-05-29 13:32] LABS: ALKALINE PHOSPHATASE 101 U/L (46-116); BUN 12 mg/dl (9-23); CHLORIDE 106 mmol/L (98-107); FREE T4 1.08 ng/dl (0.89-1.76); POTASSIUM 4.2 mmol/L (3.4-5.1); SGPT/ALT 19 U/L (5-49); TOTAL PROTEIN 7.2 gm/dL (6.0-8.0)
== END | disposition home or self-care (01) ==
LOC: LAB 12:31
PROVIDERS: ATTEND Family Medicine
DX: S82.92XA Unspecified fracture of left lower leg, initial encounter for closed fracture (principal); I10 Essential (primary) hypertension; E78.5 Hyperlipidemia, unspecified; M79.10 Myalgia, unspecified site; E83.52 Hypercalcemia; X58.XXXA Exposure to other specified factors, initial encounter; Y93.89 Activity, other specified; Y92.89 Other specified places as the place of occurrence of the external cause; Y99.8 Other external cause status

== ENCOUNTER → 2024-09-22 | Outpatient (CLI) | payer MEDICARE ==
[2024-09-22 11:52] LABS: ALKALINE PHOSPHATASE 85 U/L (46-116); BUN 14 mg/dl (9-23); CHLORIDE 105 mmol/L (98-107); POTASSIUM 4.4 mmol/L (3.4-5.1); SGPT/ALT 30 U/L (5-49); TOTAL PROTEIN 6.5 gm/dL (6.0-8.0)
== END | disposition home or self-care (01) ==
LOC: LAB 09:37
PROVIDERS: ATTEND Orthopaedic Surgery
DX: R53.83 Other fatigue (principal)

== ENCOUNTER → 2024-10-08 | Outpatient (CLI) | payer MEDICARE ==
[2024-10-08 12:32] LABS: HEMATOCRIT 41.5 % (42.0-52.0); MEAN CELL VOLUME 92.6 fl (80.0-94.0); MEAN CORPUSCULAR HGB CONC 31.3 g/dl (33.0-37.0); MEAN PLATELET VOLUME 9.5 fl (9.6-12.3); RED BLOOD COUNT 4.48 10*6/uL (4.50-5.90); RED CELL DISTRI WIDTH 13.2 % (0-14.5); WHITE BLOOD COUNT 8.4 10*3/uL (4.8-10.8)
[2024-10-08 13:02] LABS: ALKALINE PHOSPHATASE 84 U/L (46-116); BUN 16 mg/dl (9-23); CHLORIDE 107 mmol/L (98-107); CHOLESTEROL 201 mg/dL (<200); POTASSIUM 4.5 mmol/L (3.4-5.1); SGPT/ALT 23 U/L (5-49); TOTAL PROTEIN 6.4 gm/dL (6.0-8.0); TRIGLYCERIDES 407 mg/dl (<150)
[2024-10-08 13:05] LABS: VITAMIN D, 25-HYDROXY 55.5 ng/mL (30-100)
== END | disposition home or self-care (01) ==
LOC: LAB 12:08
PROVIDERS: ATTEND Family Medicine
DX: I10 Essential (primary) hypertension (principal); E78.00 Pure hypercholesterolemia, unspecified; E55.9 Vitamin D deficiency, unspecified; R53.83 Other fatigue; E74.9 Disorder of carbohydrate metabolism, unspecified; Z79.899 Other long term (current) drug therapy

== ENCOUNTER → 2024-11-21 | Outpatient (CLI) | payer MEDICARE | END | disposition home or self-care (01) | LOC: US 14:30 | PROVIDERS: ATTEND Family Medicine | DX: M25.561 Pain in right knee (principal); M79.604 Pain in right leg; M79.605 Pain in left leg ==

== ENCOUNTER → 2025-01-06 | Outpatient (CLI) | payer MEDICARE ==
[2025-01-06 10:38] LABS: MEAN CELL VOLUME 93.7 fl (80.0-94.0); MEAN CORPUSCULAR HGB 29.3 pg (27.0-31.0); MEAN PLATELET VOLUME 9.4 fl (9.6-12.3); NUCLEATED RED BLOOD CELL 0.0 % (0.0-0.0); NUCLEATED RED BLOOD CELL 0.0 10*3/uL (0.0-0.0); PLATELET COUNT AUTOMATED 243.0 10*3/uL (130-400); RED CELL DISTRI WIDTH 13.6 % (0-14.5)
[2025-01-06 11:01] LABS: BUN 13 mg/dl (9-23); LDL CHOLESTEROL 93 mg/dL (9-159); SGPT/ALT 17 U/L (5-49)
== END | disposition home or self-care (01) ==
LOC: LAB 10:02
PROVIDERS: ATTEND Internal Medicine
DX: I10 Essential (primary) hypertension (principal); E78.00 Pure hypercholesterolemia, unspecified; E11.9 Type 2 diabetes mellitus without complications

== ENCOUNTER 2025-04-19 14:43 | Emergency (ER) | payer MEDICARE ==
[~2025-04-19] VITALS: Wt 93.0 kg
[2025-04-19 14:55] VITALS: BP 153/100
[2025-04-19] MEDS ORDERED: VAZALORE81 MG PO (14:57)
[2025-04-19] MEDS ORDERED: Bacitracin Zinc/Neomycin/Pol 15 GM TUBE T ONE (15:45)
[2025-04-19] MEDS ORDERED: NEOSPORIN OIN28.3 GM T (16:41)
== END 2025-04-19 16:48 | disposition home or self-care (01) ==
LOC: ED 14:43
DX: S51.811A Laceration without foreign body of right forearm, initial encounter (principal); R51.9 Headache, unspecified; R22.32 Localized swelling, mass and lump, left upper limb; Z79.899 Other long term (current) drug therapy; Z79.82 Long term (current) use of aspirin; Z95.0 Presence of cardiac pacemaker; W22.09XA Striking against other stationary object, initial encounter; Y93.89 Activity, other specified; Y92.89 Other specified places as the place of occurrence of the external cause; Y99.8 Other external cause status